=== PATIENT | male | born 1965 | race African-American/Black ===

== ENCOUNTER 2019-06-02 14:41 | Inpatient (IN) | payer OTHER ==
[2019-06-02 15:57] VITALS: BMI 38.3
--- NOTE | 2019-06-02 18:29 | HP ---
CIWA Score Nausea/Vomitin-No Nausea/No Vomiting Muscle Tremors: 3 Anxiety: 3 Agitation: 2 Paroxysmal Sweats: 4-Forehead w/Sweat Beads Orientation: 0-Oriented Tacttile Disturbances: 2-Mild Itch/Numbness/Burn Auditory Disturbances: 0-None Visual Disturbances: 0-None Headache: 2-Mild CIWA-Ar Total Score: 16 - Admission Criteria OASAS Guidelines: Admission for Medically Managed Detox: Requires at least one of the followin. CIWA greater than 12 2. Seizures within the past 24 hours 3. Delirium tremens within the past 24 hours 4. Hallucinations within the past 24 hours 5. Acute intervention needed for co occurring medical disorder 6. Acute intervention needed for co occurring psychiatric disorder 7. Severe withdrawal that cannot be handled at a lower level of care (continued vomiting, continued diarrhea, abnormal vital signs) requiring intravenous medication and/or fluids 8. Admitting History and Physical - Admission Chief Complaint: "i'm here for alcohol detox". History of Present Illness: A 53year old male with history of HTN, dyslipidemia, CKD, 2heart sx in november 2018 and back sx in july 2018 who is here today requesting for alcohol detox. Pt states, he was in a detox unit in the [place] for 5days for alcohol detox 1month ago but can't recall the name of the hospital. pt reports that several attempts to remain sober has failed. History Source: Patient Limitations to Obtaining History: No Limitations - Past Medical History Cardiovascular: Yes: HTN, Hyperlipdemia, Other (H/o 2heart sx, november 2018.) Pulmonary: Yes: Asthma Musculoskeletal: Yes: Chronic low back pain, Other (h/o back sx july 2018.) - Smoking History Smoking history: Current some day smoker Have you smoked in the past 12 months: Yes Aproximately how many cigarettes per day: 20 - Alcohol/Substance Use Hx Alcohol Use: Yes History of Substance Use: reports: None - Social History Usual Living Arrangement: Yes: Other (lives with his sister) Do you think of yourself as: Straight/Heterosexual ADL: Independent History of Recent Travel: No Admission ROS S - HPI Allergies/Adverse Reactions: Allergies Allergy/AdvReac Type Severity Reaction Status Date / Time No Known Allergies Allergy Verified 06/02/19 15:43 Exam Limitations: No Limitations - Ebola screening Have you traveled outside of the country in the last 21 days: No Have you had contact with anyone from an Ebola affected area: No Have you been sick,other than usual withdrawal symptoms: No Do you have a fever: No - Review of Systems Constitutional: Night Sweats EENT: reports: Blurred Vision Respiratory: reports: No Symptoms reported Cardiac: reports: No Symptoms Reported GI: reports: No Symptoms Reported : reports: No Symptoms Reported Musculoskeletal: reports: No Symptoms Reported, Back Pain Integumentary: reports: No Symptoms Reported, Sweating Neuro: reports: No Symptoms reported, Headache Endocrine: reports: No Symptoms Reported Hematology: reports: No Symptoms Reported Psychiatric: reports: No Sypmtoms Reported, Judgement Intact Other Systems: Reviewed and Negative Patient History - Patient Medical History Hx Anemia: No Hx Asthma: No Hx Chronic Obstructive Pulmonary Disease (COPD): No Hx Cancer: No Hx Cardiac Disorders: Yes Hx Congestive Heart Failure: No Hx Hypertension: Yes Hx Hypercholesterolemia: Yes Hx Pacemaker: No HX Cerebrovascular Accident: No Hx Seizures: No Hx Dementia: No Hx Diabetes: No Hx Gastrointestinal Disorders: No Hx Liver Disease: No Hx Genitourinary Disorders: No Hx Sexually Transmitted Disorders: No Hx Renal Disease (ESRD): No Hx Thyroid Disease: No Hx Human Immunodeficiency Virus (HIV): No Hx Hepatitis C: No Hx Depression: No Hx Suicide Attempt: No Hx Bipolar Disorder: No Hx Schizophrenia: No - Patient Surgical History Past Surgical History: Yes Hx Cardiac Surgery: Yes Anesthesia Reaction: No - PPD History Previous Implant?: No (can't recall) Implanted On Prior R Admission?: No PPD to be Administered?: Yes - Smoking Cessation Smoking history: Current some day smoker Have you smoked in the past 12 months: Yes Aproximately how many cigarettes per day: 20 Hx Chewing Tobacco Use: No Initiated information on smoking cessation: Yes 'Breaking Loose' booklet given: 06/02/19 - Substance & Tx. History Hx Alcohol Use: Yes Substance Use Type: None Hx Substance Use Treatment: No - Substances abused Alcohol Substance route: Oral Frequency: Daily Amount used: a case and half Age of first use: 13 Date of last use: 06/02/19 Admission Physical Exam BHS - Vital Signs Vital Signs: Vital Signs - 24 hr 06/02/19 06/02/19 15:40 17:44 Temperature 97.1 F L 97.1 F L Pulse Rate 89 89 Respiratory 17 17 Rate Blood Pressure 114/74 114/74 - Diagnostic (1) Alcohol use disorder Status: Deleted (2) Hypertension Status: Chronic Qualifiers: Hypertension type: essential hypertension Qualified Code(s): I10 - Essential (primary) hypertension (3) CKD (chronic kidney disease) Status: Chronic Cleared for Admission BHS - Detox or Rehab [facility] Level of Care: Medically Managed Detox Regimen/Protocol: Librium Breathalyzer - Breathalyzer Breathalyzer: 0.184 Urine Drug Screen - Test Device Lot number: [id number] Expiration date: 12/23/20 - Control Is test valid?: Yes - Results Drug screen NEGATIVE: Yes Inpatient Rehab Admission - Rehab Decision to Admit Inpatient rehab admission?: No
[2019-06-02] MEDS ORDERED: NICOTINE POLACRILEX 2 MG GUM BUC PRN (18:44)
[2019-06-02] MEDS ORDERED: hydrOXYzine PAMOATE 25 MG CAPSULE (FP) PO PRN (18:44)
[2019-06-02] MEDS ORDERED: MAGNESIUM HYDROX 2400MG/30ML ORAL SUSPENSION 30 ML CUP PO PRN (18:44)
[2019-06-02] MEDS ORDERED: MAG HYDROX/AL HYDROX/SIMETH 30 ML UNIT-DOSE CUP PO PRN (18:44)
[2019-06-02] MEDS ORDERED: ACETAMINOPHEN 325 MG TABLET (FP) PO PRN ×2 (18:44)
[2019-06-02] MEDS ORDERED: METHOCARBAMOL 500 MG TABLET PO PRN (18:44)
[2019-06-02] MEDS ORDERED: BISMUTH SUBSALICYLATE 524 MG/30 ML UD PO PRN (18:44)
[2019-06-02] MEDS ORDERED: MAGNESIUM CITRATE 300 ML BOTTLE PO PRN (18:44)
[2019-06-02] MEDS ORDERED: MENTHOL/PHENOL 1 EACH UD MM PRN (18:44)
[2019-06-02] MEDS ORDERED: chlordiazePOXIDE HCL 25 MG CAPSULE PO ONE (18:46)
[2019-06-02] MEDS ORDERED: chlordiazePOXIDE HCL 10 MG CAPSULE PO PRN (18:46)
[2019-06-02] MEDS: IBUPROFEN 400 MG TABLET (FP) PO PRN (19:50)
[2019-06-02] MEDS: METOPROLOL TARTRATE 50 MG TABLET (FP) PO SCH (22:20)
[2019-06-02] MEDS: chlordiazePOXIDE HCL 25 MG CAPSULE PO SCH (22:20)
[2019-06-02] MEDS: THIAMINE HCL 100 MG TABLET (FP) PO SCH (22:20)
[2019-06-02] MEDS: amLODIPine BESYLATE 10 MG TABLET (FP) PO SCH (22:20)
[2019-06-02] MEDS: ATORVASTATIN CA 80 MG TABLET (FP) PO SCH (22:20)
[2019-06-03] MEDS: chlordiazePOXIDE HCL 25 MG CAPSULE PO SCH ×3 (05:17→21:42)
[2019-06-03] MEDS: IBUPROFEN 400 MG TABLET (FP) PO PRN ×2 (05:17→21:45)
[2019-06-03 09:45] LABS: HEMOGLOBIN 14.3 GM/dL (11.7-16.9); MCH 29.2 pg (25.7-33.7); MCHC 32.6 g/dl (32.0-35.9); MEAN CELL VOLUME 89.7 fl (80-96); MEAN PLT VOLUME 9.1 fl (7.5-11.1); PLATELET COUNT 280 K/MM3 (134-434); RDW 14.8 % (11.9-15.9); WHITE BLOOD COUNT 5.4 K/mm3 (4.0-10.0)
--- NOTE | 2019-06-03 10:04 | PN ---
[facility] CIWA - CIWA Score Nausea/Vomitin-Mild Nausea/No Vomiting Muscle Tremors: 2 Anxiety: 2 Agitation: 2 Paroxysmal Sweats: No Perspiration Orientation: 0-Oriented Tacttile Disturbances: 1-Very Mild Itch/Numbness Auditory Disturbances: 0-None Visual Disturbances: 0-None Headache: 2-Mild CIWA-Ar Total Score: 10 S Progress Note (SOAP) Subjective: alert,irritable,anxious,interrupted sleep,pain in the body,no chest pain,no sob Objective: 06/03/19 10:03 Vital Signs Temperature 97.9 F 06/03/19 09:10 Pulse Rate 88 06/03/19 09:10 Respiratory Rate 18 06/03/19 09:10 Blood Pressure 143/96 06/03/19 09:10 O2 Sat by Pulse Oximetry (%) 06/03/19 10:03 Laboratory Last Values WBC 5.4 K/mm3 (4.0-10.0) 06/03/19 08:00 RBC 4.90 M/mm3 (4.00-5.60) 06/03/19 08:00 Hgb 14.3 GM/dL (11.7-16.9) 06/03/19 08:00 Hct 44.0 % (35.4-49) 06/03/19 08:00 MCV 89.7 fl (80-96) 06/03/19 08:00 MCH 29.2 pg (25.7-33.7) 06/03/19 08:00 MCHC 32.6 g/dl (32.0-35.9) 06/03/19 08:00 RDW 14.8 % (11.9-15.9) 06/03/19 08:00 Plt Count 280 K/MM3 (134-434) 06/03/19 08:00 MPV 9.1 fl (7.5-11.1) 06/03/19 08:00 labs pending Assessment: 06/03/19 10:04 withdrawal symptom Plan: continue detox jonahium margoan
[2019-06-03] MEDS: METOPROLOL TARTRATE 50 MG TABLET (FP) PO SCH ×2 (10:13→21:42)
[2019-06-03] MEDS: CLOPIDOGREL BISULFATE 75 MG TABLET (FP) PO SCH (10:13)
[2019-06-03] MEDS: PANTOPRAZOLE 20 MG TABLET (FP) PO SCH (10:13)
[2019-06-03] MEDS: PRENATAL VITAMINS W/ FOLIC ACID TABLET (FP) PO SCH (10:13)
[2019-06-03] MEDS: amLODIPine BESYLATE 10 MG TABLET (FP) PO SCH ×2 (10:13→21:42)
[2019-06-03] MEDS: ASPIRIN COATED 81 MG TABLET.EC PO SCH (10:14)
[2019-06-03] MEDS: NICOTINE 21 MG/24 HOURS TOPICAL PATCH TD SCH (10:15)
[2019-06-03] MEDS: FUROSEMIDE 40 MG TABLET (FP) PO SCH (10:16)
[2019-06-03 10:18] LABS: ALBUMIN 3.5 g/dl (3.4-5.0); BILIRUBIN,TOTAL 1.1 mg/dL (0.2-1); BLOOD UREA NITROGEN 10.5 mg/dL (7-18); CREATININE 1.1 mg/dL (0.55-1.3); POTASSIUM 4.1 mmol/L (3.5-5.1); TOT PROT 6.9 g/dl (6.4-8.2)
[2019-06-03] MEDS: ATORVASTATIN CA 80 MG TABLET (FP) PO SCH (21:42)
[2019-06-03] MEDS: MELATONIN 5 MG TABLETS PO PRN (21:43)
[2019-06-03] MEDS: THIAMINE HCL 100 MG TABLET (FP) PO SCH (21:43)
[2019-06-04] MEDS: chlordiazePOXIDE 5 MG CAPSULE PO SCH ×3 (05:16→22:13)
--- NOTE | 2019-06-04 10:03 | PN ---
[facility] CIWA - CIWA Score Nausea/Vomitin-No Nausea/No Vomiting Muscle Tremors: 2 Anxiety: 2 Agitation: 0-Normal Activity Paroxysmal Sweats: 2 Orientation: 0-Oriented Tacttile Disturbances: 2-Mild Itch/Numbness/Burn Auditory Disturbances: 0-None Visual Disturbances: 0-None Headache: 1-Very Mild CIWA-Ar Total Score: 9 S Progress Note (SOAP) Subjective: c/o of body aches, chills, sweats , back pain Objective: 06/04/19 10:03 Vital Signs Temperature 97.9 F 06/04/19 09:15 Pulse Rate 89 06/04/19 09:15 Respiratory Rate 19 06/04/19 09:15 Blood Pressure 136/60 06/04/19 09:15 O2 Sat by Pulse Oximetry (%) Laboratory Last Values WBC 5.4 K/mm3 (4.0-10.0) 06/03/19 08:00 RBC 4.90 M/mm3 (4.00-5.60) 06/03/19 08:00 Hgb 14.3 GM/dL (11.7-16.9) 06/03/19 08:00 Hct 44.0 % (35.4-49) 06/03/19 08:00 MCV 89.7 fl (80-96) 06/03/19 08:00 MCH 29.2 pg (25.7-33.7) 06/03/19 08:00 MCHC 32.6 g/dl (32.0-35.9) 06/03/19 08:00 RDW 14.8 % (11.9-15.9) 06/03/19 08:00 Plt Count 280 K/MM3 (134-434) 06/03/19 08:00 MPV 9.1 fl (7.5-11.1) 06/03/19 08:00 Sodium 141 mmol/L (136-145) 06/03/19 08:00 Potassium 4.1 mmol/L (3.5-5.1) 06/03/19 08:00 Chloride 106 mmol/L (98-107) 06/03/19 08:00 Carbon Dioxide 27 mmol/L (21-32) 06/03/19 08:00 Anion Gap 7 MMOL/L (8-16) L 06/03/19 08:00 BUN 10.5 mg/dL (7-18) 06/03/19 08:00 Creatinine 1.1 mg/dL (0.55-1.3) 06/03/19 08:00 Est GFR (CKD-EPI)AfAm 89.61 06/03/19 08:00 Est GFR (CKD-EPI)NonAf 77.32 06/03/19 08:00 Random Glucose 96 mg/dL (74-106) 06/03/19 08:00 Calcium 9.0 mg/dL (8.5-10.1) 06/03/19 08:00 Total Bilirubin 1.1 mg/dL (0.2-1) H 06/03/19 08:00 AST 33 U/L (15-37) 06/03/19 08:00 ALT 25 U/L (13-61) 06/03/19 08:00 Alkaline Phosphatase 94 U/L (45-117) 06/03/19 08:00 Total Protein 6.9 g/dl (6.4-8.2) 06/03/19 08:00 Albumin 3.5 g/dl (3.4-5.0) 06/03/19 08:00 RPR Titer Nonreactive (NONREACTIVE) 06/03/19 08:00 Assessment: 06/04/19 10:03 Aox3 no acute distress EENT WNL Full ROM ambulating in the unit withdrawal sx Plan: increase fluids continue detox continue to monitor
[2019-06-04] MEDS: PRENATAL VITAMINS W/ FOLIC ACID TABLET (FP) PO SCH (10:12)
[2019-06-04] MEDS: amLODIPine BESYLATE 10 MG TABLET (FP) PO SCH ×2 (10:12→22:14)
[2019-06-04] MEDS: FUROSEMIDE 40 MG TABLET (FP) PO SCH (10:12)
[2019-06-04] MEDS: ASPIRIN COATED 81 MG TABLET.EC PO SCH (10:12)
[2019-06-04] MEDS: CLOPIDOGREL BISULFATE 75 MG TABLET (FP) PO SCH (10:12)
[2019-06-04] MEDS: METOPROLOL TARTRATE 50 MG TABLET (FP) PO SCH ×2 (10:12→22:14)
[2019-06-04] MEDS: PANTOPRAZOLE 20 MG TABLET (FP) PO SCH (10:13)
[2019-06-04] MEDS: NICOTINE 21 MG/24 HOURS TOPICAL PATCH TD SCH (10:13)
--- NOTE | 2019-06-04 14:09 | PN ---
S Progress Note Note: Vital Signs Temperature 98.4 F 06/04/19 13:41 Pulse Rate 78 06/04/19 13:41 Respiratory Rate 18 06/04/19 13:41 Blood Pressure 121/87 06/04/19 13:41 O2 Sat by Pulse Oximetry (%) Patient stable Labs normal If continues stable d/c in AM to [facility] for rehab
[2019-06-04] MEDS: ATORVASTATIN CA 80 MG TABLET (FP) PO SCH (22:14)
[2019-06-04] MEDS: THIAMINE HCL 100 MG TABLET (FP) PO SCH (22:14)
[2019-06-04] MEDS: MELATONIN 5 MG TABLETS PO PRN (22:15)
[2019-06-04] MEDS: IBUPROFEN 400 MG TABLET (FP) PO PRN (22:19)
[2019-06-05] MEDS ORDERED: chlordiazePOXIDE HCL 10 MG CAPSULE PO SCH (05:00)
--- NOTE | 2019-06-05 08:46 | DS ---
[facility] Detox Discharge Summary Admission Date: 06/02/19 Discharge Date: 06/05/19 - History Present History: Alcohol Dependence - Physical Exam Results Vital Signs: Vital Signs Temperature 98.1 F 06/05/19 06:54 Pulse Rate 84 06/05/19 06:54 Respiratory Rate 18 06/05/19 06:54 Blood Pressure 145/86 06/05/19 06:54 O2 Sat by Pulse Oximetry (%) Pertinent Admission Physical Exam Findings: Vital Signs Temperature 98.1 F 06/05/19 06:54 Pulse Rate 84 06/05/19 06:54 Respiratory Rate 18 06/05/19 06:54 Blood Pressure 145/86 06/05/19 06:54 O2 Sat by Pulse Oximetry (%) Laboratory Tests 06/03/19 06/03/19 06/03/19 08:00 08:00 08:00 WBC 5.4 RBC 4.90 Hgb 14.3 Hct 44.0 MCV 89.7 MCH 29.2 MCHC 32.6 RDW 14.8 Plt Count 280 MPV 9.1 Sodium 141 Potassium 4.1 Chloride 106 Carbon Dioxide 27 Anion Gap 7 L BUN 10.5 Creatinine 1.1 Est GFR (CKD-EPI)AfAm 89.61 Est GFR (CKD-EPI)NonAf 77.32 Random Glucose 96 Calcium 9.0 Total Bilirubin 1.1 H AST 33 ALT 25 Alkaline Phosphatase 94 Total Protein 6.9 Albumin 3.5 RPR Titer Nonreactive aaox3 ambulating no acute distress - Treatment Hospital Course: Detox Protocol Followed, Detoxed Safely, Responded well, Discharged Condition Good, Rehab Referral Accepted Patient has Accepted a Rehab Referral to: [facility] rehab - Medication Discharge Medications: Ambulatory Orders Acetaminophen 2 tab PO QID PRN 06/02/19 Amlodipine Besylate 10 mg PO BID 06/02/19 Aspirin [Aspirin EC] 81 mg PO DAILY 06/02/19 Atorvastatin Ca [Lipitor] 80 mg PO HS 06/02/19 Clopidogrel Bisulfate [Plavix] 75 mg PO DAILY 06/02/19 Furosemide [Lasix -] 40 mg PO DAILY 06/02/19 Metoprolol Tartrate [Lopressor -] 50 mg PO BID 06/02/19 Pantoprazole Sodium [Protonix -] 20 mg PO DAILY 06/02/19 - Diagnosis (1) CKD (chronic kidney disease) Current Visit: Yes Status: Chronic (2) Hypertension Current Visit: Yes Status: Chronic Qualifiers: Hypertension type: essential hypertension Qualified Code(s): I10 - Essential (primary) hypertension (3) Alcohol dependence with withdrawal, uncomplicated Current Visit: Yes Status: Chronic - AMA Did Patient Leave Against Medical Advice: No
[2019-06-05 09:52] VITALS: BP 130/95; PULSE 92; TEMP 97.7
[2019-06-05] MEDS: NICOTINE 21 MG/24 HOURS TOPICAL PATCH TD SCH (10:39)
[2019-06-05] MEDS: PANTOPRAZOLE 20 MG TABLET (FP) PO SCH (10:40)
[2019-06-05] MEDS: PRENATAL VITAMINS W/ FOLIC ACID TABLET (FP) PO SCH (10:40)
[2019-06-05] MEDS: ASPIRIN COATED 81 MG TABLET.EC PO SCH (10:40)
[2019-06-05] MEDS: FUROSEMIDE 40 MG TABLET (FP) PO SCH (10:40)
[2019-06-05] MEDS: amLODIPine BESYLATE 10 MG TABLET (FP) PO SCH (10:40)
[2019-06-05] MEDS: METOPROLOL TARTRATE 50 MG TABLET (FP) PO SCH (10:40)
[2019-06-05] MEDS: CLOPIDOGREL BISULFATE 75 MG TABLET (FP) PO SCH (10:40)
[2019-06-06] MEDS ORDERED: chlordiazePOXIDE HCL 10 MG CAPSULE PO ONE (05:00)
== END 2019-06-05 11:30 | disposition home or self-care (01) | DRG 775 ==
LOC: YASAS 14:41 → Y6N 18:54
PROVIDERS: ADMIT Allergy & Immunology; ATTEND Allergy & Immunology
PROC: HZ2ZZZZ Detoxification Services for Substance Abuse Treatment (ICD-10-PCS; principal; 2019-06-02)
DX: F10.230 Alcohol dependence with withdrawal, uncomplicated (principal); F17.210 Nicotine dependence, cigarettes, uncomplicated; I51.9 Heart disease, unspecified; I12.9 Hypertensive chronic kidney disease with stage 1 through stage 4 chronic kidney disease, or unspecified chronic kidney disease; N18.9 Chronic kidney disease, unspecified; E78.5 Hyperlipidemia, unspecified; J45.909 Unspecified asthma, uncomplicated; M54.5 Low back pain; G89.29 Other chronic pain
CPT/HCPCS: 36415; 80053; 85027; 86593

== ENCOUNTER 2019-07-30 11:14 | Inpatient (IN) | payer OTHER ==
[2019-07-30 13:21] VITALS: BMI 39.0
--- NOTE | 2019-07-30 13:50 | HP ---
CIWA Score Nausea/Vomitin-No Nausea/No Vomiting Muscle Tremors: 1-None Visible, but [place] Anxiety: 2 Agitation: 0-Normal Activity Paroxysmal Sweats: 1-Minimal Palms Moist Orientation: 3-Disoriented Date>2 days Tacttile Disturbances: 1-Very Mild Itch/Numbness Auditory Disturbances: 1-Very Mild Visual Disturbances: 1-Very Mild Sensitivity Headache: 2-Mild CIWA-Ar Total Score: 12 - Admission Criteria OASAS Guidelines: Admission for Medically Managed Detox: Requires at least one of the followin. CIWA greater than 12 2. Seizures within the past 24 hours 3. Delirium tremens within the past 24 hours 4. Hallucinations within the past 24 hours 5. Acute intervention needed for co occurring medical disorder 6. Acute intervention needed for co occurring psychiatric disorder 7. Severe withdrawal that cannot be handled at a lower level of care (continued vomiting, continued diarrhea, abnormal vital signs) requiring intravenous medication and/or fluids 8. Admitting History and Physical - Admission History of Present Illness: This is a 53 year old male with PMH of HTN, HLD, CAD (s/p 2x CABG 2018), asthma, chronic back pain. He presented to the clinic today seeking detoxification from alcohol. He was last admitted her in May 2019 for detox from alcohol. He drinks 1 12xpack of beer and 1-2 cans of wine daily. Has been drinking since he was 13, his last drink was earlier today when he had 3 beers. He denies seizures or blackouts related to drinking. He smokes 1/2 ppd of cigarettes. Denies heroin, cocaine, marijuana use ROS: - SOB, cough (dry) - Headache, dizziness PMH: - HTN, HLD, CAD (s/p 2x CABG 2018), asthma, chronic back pain PSH: - CAD (s/p 2x CABG 2018) - Back surgery (2019) Social: - Lives in a fpc, lives on disability - Previously had a [employer] - Support system, close to sister who lives in [place] Physical Exam: - CIWA 13 - AOx3 - Lungs: Clear B/L - CVS: RRR - Abdomen: Soft, ND, NT - LE: No edema, no calf tenderness - [employer]: Motor 5/5 B/L, sensations intact Plan: - CIWA 12, will admit for alcohol detox and start on Librium protocol - Psych consulted for Hx of depression/bipolar disorde - Past Medical History Cardiovascular: Yes: HTN, Hyperlipdemia, Other (H/o 2heart sx, november 2018.) Pulmonary: Yes: Asthma Musculoskeletal: Yes: Chronic low back pain, Other (h/o back sx july 2018.) - Smoking History Smoking history: Current some day smoker Have you smoked in the past 12 months: Yes Aproximately how many cigarettes per day: 20 - Alcohol/Substance Use Hx Alcohol Use: Yes History of Substance Use: reports: None - Social History ADL: Independent History of Recent Travel: No Admission [facility] Allergies/Adverse Reactions: Allergies Allergy/AdvReac Type Severity Reaction Status Date / Time No Known Allergies Allergy Verified 07/30/19 13:08 Patient History - Patient Medical History Hx Anemia: No Hx Asthma: Yes Hx Chronic Obstructive Pulmonary Disease (COPD): No Hx Cancer: No Hx Cardiac Disorders: No Hx Congestive Heart Failure: No Hx Hypertension: Yes Hx Hypercholesterolemia: Yes Hx Pacemaker: No HX Cerebrovascular Accident: No Hx Seizures: No Hx Dementia: No Hx Diabetes: No Hx Gastrointestinal Disorders: No Hx Liver Disease: No Hx Genitourinary Disorders: No Hx Sexually Transmitted Disorders: No Hx Renal Disease (ESRD): No Hx Thyroid Disease: No Hx Human Immunodeficiency Virus (HIV): No Hx Hepatitis C: No Hx Depression: Yes Hx Suicide Attempt: No Hx Bipolar Disorder: No Hx Schizophrenia: No - Patient Surgical History Past Surgical History: Yes Hx Neurologic Surgery: No Hx Cataract Extraction: No Hx Cardiac Surgery: Yes (cabb x2) Hx Lung Surgery: No Hx Breast Surgery: No Hx Breast Biopsy: No Hx Abdominal Surgery: No Hx Appendectomy: No Hx Cholecystectomy: No Hx Genitourinary Surgery: No Hx Section: No Hx Orthopedic Surgery: Yes (back sx.) Anesthesia Reaction: No - PPD History Previous Implant?: Yes Implanted On Prior [facility] Admission?: Yes Date: 06/06/19 Results: unobtainable - Smoking Cessation Smoking history: Current some day smoker Have you smoked in the past 12 months: Yes Aproximately how many cigarettes per day: 20 Cigars Per Day: 0 Hx Chewing Tobacco Use: No Initiated information on smoking cessation: No - Substances abused Alcohol Substance route: Oral Frequency: Daily Amount used: 12cans of beers Age of first use: 13 Date of last use: 07/30/19 Admission Physical Exam BHS - Vital Signs Vital Signs: Vital Signs - 24 hr 07/30/19 13:14 Temperature 97.1 F L Pulse Rate 97 H Respiratory 18 Rate Blood Pressure 128/86 Breathalyzer - Breathalyzer Breathalyzer: 0.196 Urine Drug Screen - Test Device Lot number: [id number] Expiration date: 04/25/21 - Control Is test valid?: Yes - Results Drug screen NEGATIVE: Yes
[2019-07-30] MEDS ORDERED: ACETAMINOPHEN 325 MG TABLET (FP) PO PRN ×2 (13:57→14:00)
[2019-07-30] MEDS ORDERED: chlordiazePOXIDE HCL 25 MG CAPSULE PO PRN (13:57)
[2019-07-30] MEDS ORDERED: MAGNESIUM CITRATE 300 ML BOTTLE PO PRN (13:57)
[2019-07-30] MEDS ORDERED: MENTHOL/PHENOL 1 EACH UD MM PRN (13:57)
[2019-07-30] MEDS ORDERED: NICOTINE POLACRILEX 2 MG GUM BUC PRN (13:57)
[2019-07-30] MEDS ORDERED: MAG HYDROX/AL HYDROX/SIMETH 30 ML UNIT-DOSE CUP PO PRN (13:57)
[2019-07-30] MEDS ORDERED: MAGNESIUM HYDROX 2400MG/30ML ORAL SUSPENSION 30 ML CUP PO PRN (13:57)
--- NOTE | 2019-07-30 13:59 | BHS.RME ---
Substance Use & Tx History - Substance Use History Alcohol Substance amount: 12 beers Frequency of use: Daily Substance route: Oral Date of Last Use: 07/30/19 Nicotine Substance amount: 20 ciggs Frequency of use: Daily Substance route: Smoking Date of Last Use: 07/30/19 Physical/Psych/Mental Status - Behavior General Behavior: Increased activity (restlessness, agitation) Eye Contact: Normal - Cooperativeness Cooperativeness: Cooperative - Thinking Thought Processes: Tight, Logical, Goal Directed Thought content: Future oriented - Physical Health Problems Is patient presently having any pain?: No Does patient presently have any injuries (include location): No Does patient currently have a fever: No Is patient : No CIWA Nausea/Vomitin-No Nausea/No Vomiting Muscle Tremors: 1-None Visible, but [place] Anxiety: 2 Agitation: 0-Normal Activity Paroxysmal Sweats: 1-Minimal Palms Moist Orientation: 3-Disoriented Date>2 days Tacttile Disturbances: 1-Very Mild Itch/Numbness Auditory Disturbances: 1-Very Mild Visual Disturbances: 1-Very Mild Sensitivity Headache: 2-Mild CIWA-Ar Total Score: 12
[2019-07-30] MEDS ORDERED: ONDANSETRON *ODT* 4 MG TABLET SL ONE (14:34)
[2019-07-30] MEDS ORDERED: BISMUTH SUBSALICYLATE 262 MG/15 ML BTL PO PRN (14:41)
[2019-07-30] MEDS: hydrOXYzine PAMOATE 25 MG CAPSULE (FP) PO SCH ×3 (16:01→21:01)
[2019-07-30] MEDS: NICOTINE 14 MG/24 HOURS TOPICAL PATCH TD SCH (16:03)
[2019-07-30] MEDS: chlordiazePOXIDE HCL 25 MG CAPSULE PO SCH ×2 (18:00→22:34)
[2019-07-30 19:40] LABS: HEMATOCRIT 43.2 % (35.4-49); MCHC 32.5 g/dl (32.0-35.9); MEAN CELL VOLUME 89.2 fl (80-96); PLATELET COUNT 314 K/MM3 (134-434); RBC 4.84 M/mm3 (4.00-5.60); RDW 15.6 % (11.9-15.9); WHITE BLOOD COUNT 7.6 K/mm3 (4.0-10.0)
[2019-07-30 20:11] LABS: ALBUMIN 3.9 g/dl (3.4-5.0); BILIRUBIN,TOTAL 0.3 mg/dL (0.2-1); BLOOD UREA NITROGEN 11.8 mg/dL (7-18); CALCIUM 9.1 mg/dL (8.5-10.1); CREATININE 1.1 mg/dL (0.55-1.3); POTASSIUM 4.3 mmol/L (3.5-5.1); TOT PROT 7.4 g/dl (6.4-8.2)
[2019-07-30] MEDS: THIAMINE HCL 100 MG TABLET (FP) PO SCH (21:00)
[2019-07-30] MEDS: METOPROLOL TARTRATE 50 MG TABLET (FP) PO SCH (21:00)
[2019-07-30] MEDS: ATORVASTATIN CA 80 MG TABLET (FP) PO SCH (21:01)
[2019-07-30] MEDS ORDERED: MELATONIN 5 MG TABLETS PO SCH (22:00)
[2019-07-30] MEDS ORDERED: amLODIPine BESYLATE 10 MG TABLET (FP) PO SCH (22:00)
[2019-07-31] MEDS: chlordiazePOXIDE HCL 25 MG CAPSULE PO SCH ×4 (06:05→22:34)
[2019-07-31] MEDS: hydrOXYzine PAMOATE 25 MG CAPSULE (FP) PO SCH ×5 (06:05→22:34)
[2019-07-31] MEDS: METHOCARBAMOL 500 MG TABLET PO PRN ×3 (06:11→22:38)
[2019-07-31] MEDS: IBUPROFEN 400 MG TABLET (FP) PO PRN ×2 (06:11→13:17)
--- NOTE | 2019-07-31 09:52 | CONSULT ---
[facility] Psychiatric Consult - Data Date of interview: 07/31/19 Admission source: Assisted on [address] [place] [address] Identifying data: Mr Drake is a 53 years old Black male, unemployed(omar su) receiving SSD, homeless seeking detox treatment for alcohol Substance Abuse History: Reports history of alcohol use. Refer to addiction counselor's summary for further information Medical History: Significant for bronchial asthma, GERD, hypertension, dyslipidemia, coronary artery disease, chronic back pain, history of CABG x2 ans back surgery in 2019 Psychiatric History: Denies history of previous psychiatric treatment. However, reports that he was recently referred by his primary care physician to [facility] for treatment of depression. Reports his depression stemmed from of his brother in December 2018 and psycosocial issues including homelessness. 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 He said that his next appointment is on 08/13/19. At present, reports feeling depressed and sleeping poorly Physical/Sexual Abuse/Trauma History: Denies history of abuse as a child or DV relationship as an adult Mental Status Exam - Mental Status Exam Alert and Oriented to: Time, Place, Person Cognitive Function: Fair Patient Appearance: Well Groomed Mood: Depressed Affect: Appropriate Patient Behavior: Cooperative Speech Pattern: Clear Voice Loudness: Normal Thought Process: Intact, Goal Oriented Thought Disorder: Not Present Hallucinations: Denies Suicidal Ideation: Denies Homicidal Ideation: Denies Insight/Judgement: Poor Sleep: Poorly Appetite: Good Muscle strength/Tone: Normal Gait/Station: Normal Psychiatric Findings - Problem List ([place] 1, 2,3) (1) Alcohol-induced mood disorder Current Visit: Yes Status: Acute (2) Alcohol-induced sleep disorder Current Visit: Yes Status: Acute (3) Alcohol dependence with withdrawal, uncomplicated Current Visit: No Status: Acute (4) Nicotine dependence Current Visit: Yes Status: Chronic (5) Hypertension Current Visit: No Status: Chronic Qualifiers: Hypertension type: essential hypertension Qualified Code(s): I10 - Essential (primary) hypertension (6) Dyslipidemia Current Visit: Yes Status: Chronic (7) GERD (gastroesophageal reflux disease) Current Visit: Yes Status: Chronic (8) CAD (coronary artery disease) of artery bypass graft Current Visit: Yes Status: Chronic (9) Bronchial asthma Current Visit: Yes Status: Chronic (10) Chronic back pain Current Visit: Yes Status: Chronic - Initial Treatment Plan Initial Treatment Plan: 1) Start Melatonin 10 mg po HS prn for insomnia. 2) Continue inpatient detoxification
[2019-07-31] MEDS ORDERED: MELATONIN 5 MG TABLETS PO PRN (09:55)
[2019-07-31] MEDS ORDERED: amLODIPine BESYLATE 10 MG TABLET (FP) PO ONE (10:00)
[2019-07-31] MEDS ORDERED: CLOPIDOGREL BISULFATE 75 MG TABLET (FP) PO SCH (10:00)
[2019-07-31] MEDS ORDERED: MULTIVITAMINS (DAILY MVI) TABLET (FP) PO SCH (10:00)
[2019-07-31] MEDS: ASPIRIN COATED 81 MG TABLET.EC PO SCH (10:44)
[2019-07-31] MEDS: METOPROLOL TARTRATE 50 MG TABLET (FP) PO SCH ×2 (10:44→22:34)
[2019-07-31] MEDS: CLOPIDOGREL BISULFATE 75 MG TABLET (FP) PO SCH (10:44)
[2019-07-31] MEDS: amLODIPine BESYLATE 10 MG TABLET (FP) PO SCH (10:44)
[2019-07-31] MEDS: PRENATAL VITAMINS W/ FOLIC ACID TABLET (FP) PO SCH (10:45)
[2019-07-31] MEDS: NICOTINE 14 MG/24 HOURS TOPICAL PATCH TD SCH (10:45)
[2019-07-31] MEDS: FUROSEMIDE 40 MG TABLET (FP) PO SCH (10:45)
[2019-07-31] MEDS: FAMOTIDINE 20 MG TABLET PO SCH ×2 (10:45→22:34)
--- NOTE | 2019-07-31 11:36 | PN ---
S CIWA - CIWA Score Nausea/Vomitin Muscle Tremors: 2 Anxiety: 2 Agitation: 2 Paroxysmal Sweats: 1-Minimal Palms Moist Orientation: 0-Oriented Tacttile Disturbances: 1-Very Mild Itch/Numbness Auditory Disturbances: 0-None Visual Disturbances: 0-None Headache: 2-Mild CIWA-Ar Total Score: 12 S Progress Note (SOAP) Subjective: alert,irritabel,anxious,interrupted sleep,tremor,pain in the body Objective: 07/31/19 11:35 Vital Signs Temperature 98.8 F 07/31/19 10:05 Pulse Rate 100 H 07/31/19 10:05 Respiratory Rate 20 07/31/19 10:05 Blood Pressure 146/102 H 07/31/19 10:05 O2 Sat by Pulse Oximetry (%) Laboratory Last Values WBC 7.6 K/mm3 (4.0-10.0) 07/30/19 11:41 RBC 4.84 M/mm3 (4.00-5.60) 07/30/19 11:41 Hgb 14.0 GM/dL (11.7-16.9) 07/30/19 11:41 Hct 43.2 % (35.4-49) 07/30/19 11:41 MCV 89.2 fl (80-96) 07/30/19 11:41 MCH 29.0 pg (25.7-33.7) 07/30/19 11:41 MCHC 32.5 g/dl (32.0-35.9) 07/30/19 11:41 RDW 15.6 % (11.9-15.9) 07/30/19 11:41 Plt Count 314 K/MM3 (134-434) 07/30/19 11:41 MPV 9.0 fl (7.5-11.1) 07/30/19 11:41 Sodium 143 mmol/L (136-145) 07/30/19 11:41 Potassium 4.3 mmol/L (3.5-5.1) 07/30/19 11:41 Chloride 111 mmol/L (98-107) H 07/30/19 11:41 Carbon Dioxide 25 mmol/L (21-32) 07/30/19 11:41 Anion Gap 7 MMOL/L (8-16) L 07/30/19 11:41 BUN 11.8 mg/dL (7-18) 07/30/19 11:41 Creatinine 1.1 mg/dL (0.55-1.3) 07/30/19 11:41 Est GFR (CKD-EPI)AfAm 89.61 07/30/19 11:41 Est GFR (CKD-EPI)NonAf 77.32 07/30/19 11:41 Random Glucose 84 mg/dL (74-106) 07/30/19 11:41 Calcium 9.1 mg/dL (8.5-10.1) 07/30/19 11:41 Total Bilirubin 0.3 mg/dL (0.2-1) 07/30/19 11:41 AST 27 U/L (15-37) 07/30/19 11:41 ALT 29 U/L (13-61) 07/30/19 11:41 Alkaline Phosphatase 106 U/L (45-117) 07/30/19 11:41 Total Protein 7.4 g/dl (6.4-8.2) 07/30/19 11:41 Albumin 3.9 g/dl (3.4-5.0) 07/30/19 11:41 RPR Titer Nonreactive (NONREACTIVE) 07/30/19 11:41 Assessment: 07/31/19 11:35 withdrawal symptom Plan: continue detox librium regien
[2019-07-31] MEDS: THIAMINE HCL 100 MG TABLET (FP) PO SCH (22:34)
[2019-07-31] MEDS: ATORVASTATIN CA 80 MG TABLET (FP) PO SCH (22:34)
[2019-08-01] MEDS: hydrOXYzine PAMOATE 25 MG CAPSULE (FP) PO SCH ×5 (06:47→22:49)
[2019-08-01] MEDS: CLOPIDOGREL BISULFATE 75 MG TABLET (FP) PO SCH (06:47)
[2019-08-01] MEDS: chlordiazePOXIDE HCL 25 MG CAPSULE PO SCH ×4 (06:47→22:46)
[2019-08-01] MEDS: IBUPROFEN 400 MG TABLET (FP) PO PRN (06:49)
[2019-08-01] MEDS: NICOTINE 14 MG/24 HOURS TOPICAL PATCH TD SCH (10:10)
[2019-08-01] MEDS: PRENATAL VITAMINS W/ FOLIC ACID TABLET (FP) PO SCH (10:10)
[2019-08-01] MEDS: FUROSEMIDE 40 MG TABLET (FP) PO SCH (10:10)
[2019-08-01] MEDS: FAMOTIDINE 20 MG TABLET PO SCH ×2 (10:11→22:46)
[2019-08-01] MEDS: ASPIRIN COATED 81 MG TABLET.EC PO SCH (10:11)
[2019-08-01] MEDS: METOPROLOL TARTRATE 50 MG TABLET (FP) PO SCH ×2 (10:11→22:46)
[2019-08-01] MEDS: amLODIPine BESYLATE 10 MG TABLET (FP) PO SCH (10:11)
--- NOTE | 2019-08-01 12:05 | PN ---
S CIWA - CIWA Score Nausea/Vomitin-Mild Nausea/No Vomiting Muscle Tremors: 2 Anxiety: 2 Agitation: 2 Paroxysmal Sweats: No Perspiration Orientation: 0-Oriented Tacttile Disturbances: 1-Very Mild Itch/Numbness Auditory Disturbances: 0-None Visual Disturbances: 0-None Headache: 1-Very Mild CIWA-Ar Total Score: 9 S Progress Note (SOAP) Subjective: alert,irritable,anxious,interrupted sleep,tremor,nausea Objective: 08/01/19 12:04 Vital Signs Temperature 98.7 F 08/01/19 09:59 Pulse Rate 104 H 08/01/19 09:59 Respiratory Rate 18 08/01/19 09:59 Blood Pressure 137/68 08/01/19 09:59 O2 Sat by Pulse Oximetry (%) Laboratory Last Values WBC 7.6 K/mm3 (4.0-10.0) 07/30/19 11:41 RBC 4.84 M/mm3 (4.00-5.60) 07/30/19 11:41 Hgb 14.0 GM/dL (11.7-16.9) 07/30/19 11:41 Hct 43.2 % (35.4-49) 07/30/19 11:41 MCV 89.2 fl (80-96) 07/30/19 11:41 MCH 29.0 pg (25.7-33.7) 07/30/19 11:41 MCHC 32.5 g/dl (32.0-35.9) 07/30/19 11:41 RDW 15.6 % (11.9-15.9) 07/30/19 11:41 Plt Count 314 K/MM3 (134-434) 07/30/19 11:41 MPV 9.0 fl (7.5-11.1) 07/30/19 11:41 Sodium 143 mmol/L (136-145) 07/30/19 11:41 Potassium 4.3 mmol/L (3.5-5.1) 07/30/19 11:41 Chloride 111 mmol/L (98-107) H 07/30/19 11:41 Carbon Dioxide 25 mmol/L (21-32) 07/30/19 11:41 Anion Gap 7 MMOL/L (8-16) L 07/30/19 11:41 BUN 11.8 mg/dL (7-18) 07/30/19 11:41 Creatinine 1.1 mg/dL (0.55-1.3) 07/30/19 11:41 Est GFR (CKD-EPI)AfAm 89.61 07/30/19 11:41 Est GFR (CKD-EPI)NonAf 77.32 07/30/19 11:41 Random Glucose 84 mg/dL (74-106) 07/30/19 11:41 Calcium 9.1 mg/dL (8.5-10.1) 07/30/19 11:41 Total Bilirubin 0.3 mg/dL (0.2-1) 07/30/19 11:41 AST 27 U/L (15-37) 07/30/19 11:41 ALT 29 U/L (13-61) 07/30/19 11:41 Alkaline Phosphatase 106 U/L (45-117) 07/30/19 11:41 Total Protein 7.4 g/dl (6.4-8.2) 07/30/19 11:41 Albumin 3.9 g/dl (3.4-5.0) 07/30/19 11:41 RPR Titer Nonreactive (NONREACTIVE) 07/30/19 11:41 Assessment: 08/01/19 12:04 withdrawal symptom Plan: continue detox librium regimen
[2019-08-01] MEDS: METHOCARBAMOL 500 MG TABLET PO PRN ×2 (16:39→22:48)
[2019-08-01] MEDS: ATORVASTATIN CA 80 MG TABLET (FP) PO SCH (22:46)
[2019-08-01] MEDS: THIAMINE HCL 100 MG TABLET (FP) PO SCH (22:46)
[2019-08-01] MEDS: ACETAMINOPHEN 325 MG TABLET (FP) PO PRN (22:47)
[2019-08-02] MEDS ORDERED: chlordiazePOXIDE HCL 10 MG CAPSULE PO PRN
[2019-08-02] MEDS: CLOPIDOGREL BISULFATE 75 MG TABLET (FP) PO SCH (06:29)
[2019-08-02] MEDS: hydrOXYzine PAMOATE 25 MG CAPSULE (FP) PO SCH ×3 (06:29→14:12)
[2019-08-02] MEDS: chlordiazePOXIDE HCL 10 MG CAPSULE PO SCH ×4 (06:29→22:43)
[2019-08-02] MEDS: ACETAMINOPHEN 325 MG TABLET (FP) PO PRN (06:32)
[2019-08-02] MEDS: PRENATAL VITAMINS W/ FOLIC ACID TABLET (FP) PO SCH (10:48)
[2019-08-02] MEDS: FUROSEMIDE 40 MG TABLET (FP) PO SCH (10:48)
[2019-08-02] MEDS: FAMOTIDINE 20 MG TABLET PO SCH ×2 (10:49→22:43)
[2019-08-02] MEDS: NICOTINE 14 MG/24 HOURS TOPICAL PATCH TD SCH (10:49)
[2019-08-02] MEDS: METOPROLOL TARTRATE 50 MG TABLET (FP) PO SCH ×2 (10:49→22:43)
[2019-08-02] MEDS: amLODIPine BESYLATE 10 MG TABLET (FP) PO SCH (10:49)
[2019-08-02] MEDS: ASPIRIN COATED 81 MG TABLET.EC PO SCH (10:49)
[2019-08-02] MEDS: IBUPROFEN 400 MG TABLET (FP) PO PRN ×2 (10:52→17:47)
--- NOTE | 2019-08-02 11:58 | PN ---
[facility] CIWA - CIWA Score Nausea/Vomitin-No Nausea/No Vomiting Muscle Tremors: 2 Anxiety: 1-Mildly Anxious Agitation: 2 Paroxysmal Sweats: 2 Orientation: 0-Oriented Tacttile Disturbances: 0-None Auditory Disturbances: 0-None Visual Disturbances: 0-None Headache: 0-None Present CIWA-Ar Total Score: 7 BHS Progress Note (SOAP) Subjective: sweats restless interrupted sleep muscle ache back pain Objective: 08/02/19 11:58 Vital Signs Temperature 98.2 F 08/02/19 09:44 Pulse Rate 108 H 08/02/19 09:44 Respiratory Rate 20 08/02/19 09:44 Blood Pressure 127/97 08/02/19 09:44 O2 Sat by Pulse Oximetry (%) aaox3 ambulating no acute distress Assessment: 08/02/19 11:58 withdrawals Plan: continue detox motrin/tylenol prn roboxin prn lidocaine patch
[2019-08-02] MEDS ORDERED: hydrOXYzine PAMOATE 25 MG CAPSULE (FP) PO PRN (14:22)
[2019-08-02] MEDS: LIDOCAINE 5% TOPICAL PATCH TP SCH (15:21)
[2019-08-02] MEDS ORDERED: LIDOCAINE PATCH REMOVAL MC SCH (22:00)
[2019-08-02] MEDS: ATORVASTATIN CA 80 MG TABLET (FP) PO SCH (22:42)
[2019-08-02] MEDS: THIAMINE HCL 100 MG TABLET (FP) PO SCH (22:43)
[2019-08-02] MEDS: METHOCARBAMOL 500 MG TABLET PO PRN (22:44)
[2019-08-03] MEDS: CLOPIDOGREL BISULFATE 75 MG TABLET (FP) PO SCH (06:17)
[2019-08-03] MEDS: chlordiazePOXIDE HCL 10 MG CAPSULE PO SCH ×2 (06:18→17:58)
[2019-08-03] MEDS: IBUPROFEN 400 MG TABLET (FP) PO PRN ×2 (06:19→18:01)
[2019-08-03] MEDS: METHOCARBAMOL 500 MG TABLET PO PRN ×2 (06:20→18:01)
[2019-08-03] MEDS: NICOTINE 14 MG/24 HOURS TOPICAL PATCH TD SCH (10:14)
[2019-08-03] MEDS: FUROSEMIDE 40 MG TABLET (FP) PO SCH (10:14)
[2019-08-03] MEDS: PRENATAL VITAMINS W/ FOLIC ACID TABLET (FP) PO SCH (10:14)
[2019-08-03] MEDS: amLODIPine BESYLATE 10 MG TABLET (FP) PO SCH (10:14)
[2019-08-03] MEDS: LIDOCAINE 5% TOPICAL PATCH TP SCH (10:15)
[2019-08-03] MEDS: METOPROLOL TARTRATE 50 MG TABLET (FP) PO SCH (10:15)
[2019-08-03] MEDS: ASPIRIN COATED 81 MG TABLET.EC PO SCH (10:15)
[2019-08-03] MEDS: FAMOTIDINE 20 MG TABLET PO SCH (10:15)
[2019-08-03] MEDS: ACETAMINOPHEN 325 MG TABLET (FP) PO PRN (10:17)
--- NOTE | 2019-08-03 10:54 | PN ---
[facility] CIWA - CIWA Score Nausea/Vomitin-Mild Nausea/No Vomiting Muscle Tremors: 1-None Visible, but [place] Anxiety: 2 Agitation: 2 Paroxysmal Sweats: No Perspiration Orientation: 0-Oriented Tacttile Disturbances: 0-None Auditory Disturbances: 0-None Visual Disturbances: 0-None Headache: 1-Very Mild CIWA-Ar Total Score: 7 S Progress Note (SOAP) Subjective: alert,irritable,anxious,interrupted sleep, Objective: 08/03/19 10:52 Vital Signs Temperature 98.2 F 08/03/19 08:53 Pulse Rate 96 H 08/03/19 08:53 Respiratory Rate 18 08/03/19 08:53 Blood Pressure 155/92 08/03/19 08:53 O2 Sat by Pulse Oximetry (%) Assessment: 08/03/19 10:52 withdrawal symptom Plan: continue detox librium regimen,discharge in am
[2019-08-03 15:17] VITALS: BP 128/89; PULSE 91; TEMP 97.9
--- NOTE | 2019-08-03 15:23 | PN ---
S Progress Note Note: patient is stable to be discharge to rehab today
--- NOTE | 2019-08-03 15:31 | DS ---
[facility] Detox Discharge Summary Admission Date: 07/30/19 Discharge Date: 08/03/19 - History Present History: Alcohol Dependence Additional Comments: alert,oriented x 3 ambulation on unit heart normal heart sound,s1s2 lung clear bilaterally no abdominal pain stable for discharge to rehab total discharge time 35 mins Pertinent Past History: hypertension cad - Physical Exam Results Vital Signs: Vital Signs Temperature 97.9 F 08/03/19 13:23 Pulse Rate 91 H 08/03/19 13:23 Respiratory Rate 20 08/03/19 13:23 Blood Pressure 128/89 08/03/19 13:23 O2 Sat by Pulse Oximetry (%) Pertinent Admission Physical Exam Findings: Laboratory Last Values WBC 7.6 K/mm3 (4.0-10.0) 07/30/19 11:41 RBC 4.84 M/mm3 (4.00-5.60) 07/30/19 11:41 Hgb 14.0 GM/dL (11.7-16.9) 07/30/19 11:41 Hct 43.2 % (35.4-49) 07/30/19 11:41 MCV 89.2 fl (80-96) 07/30/19 11:41 MCH 29.0 pg (25.7-33.7) 07/30/19 11:41 MCHC 32.5 g/dl (32.0-35.9) 07/30/19 11:41 RDW 15.6 % (11.9-15.9) 07/30/19 11:41 Plt Count 314 K/MM3 (134-434) 07/30/19 11:41 MPV 9.0 fl (7.5-11.1) 07/30/19 11:41 Sodium 143 mmol/L (136-145) 07/30/19 11:41 Potassium 4.3 mmol/L (3.5-5.1) 07/30/19 11:41 Chloride 111 mmol/L (98-107) H 07/30/19 11:41 Carbon Dioxide 25 mmol/L (21-32) 07/30/19 11:41 Anion Gap 7 MMOL/L (8-16) L 07/30/19 11:41 BUN 11.8 mg/dL (7-18) 07/30/19 11:41 Creatinine 1.1 mg/dL (0.55-1.3) 07/30/19 11:41 Est GFR (CKD-EPI)AfAm 89.61 07/30/19 11:41 Est GFR (CKD-EPI)NonAf 77.32 07/30/19 11:41 Random Glucose 84 mg/dL (74-106) 07/30/19 11:41 Calcium 9.1 mg/dL (8.5-10.1) 07/30/19 11:41 Total Bilirubin 0.3 mg/dL (0.2-1) 07/30/19 11:41 AST 27 U/L (15-37) 07/30/19 11:41 ALT 29 U/L (13-61) 07/30/19 11:41 Alkaline Phosphatase 106 U/L (45-117) 07/30/19 11:41 Total Protein 7.4 g/dl (6.4-8.2) 07/30/19 11:41 Albumin 3.9 g/dl (3.4-5.0) 07/30/19 11:41 RPR Titer Nonreactive (NONREACTIVE) 07/30/19 11:41 Vital Signs Temperature 97.9 F 08/03/19 13:23 Pulse Rate 91 H 08/03/19 13:23 Respiratory Rate 20 08/03/19 13:23 Blood Pressure 128/89 08/03/19 13:23 O2 Sat by Pulse Oximetry (%) withdrawal signs and symptom - Treatment Hospital Course: Detox Protocol Followed, Detoxed Safely, Responded well, Discharged Condition Good, Rehab Referral Accepted Patient has Accepted [facility] Referral [facility] - Medication Discharge Medications: Ambulatory Orders Acetaminophen 2 tab PO QID PRN 06/02/19 Amlodipine Besylate 10 mg PO BID 06/02/19 Aspirin [Aspirin EC] 81 mg PO DAILY 06/02/19 Atorvastatin Ca [Lipitor] 80 mg PO HS 06/02/19 Clopidogrel Bisulfate [Plavix] 75 mg PO DAILY 06/02/19 Furosemide [Lasix -] 40 mg PO DAILY 06/02/19 Metoprolol Tartrate [Lopressor -] 50 mg PO BID 06/02/19 Pantoprazole Sodium [Protonix -] 20 mg PO DAILY 06/02/19 Multivitamin [Multiple Vitamins] 1 each PO DAILY 07/30/19 - Diagnosis (1) Bronchial asthma Current Visit: Yes Status: Chronic (2) CAD (coronary artery disease) of artery bypass graft Current Visit: Yes Status: Chronic (3) Chronic back pain Current Visit: Yes Status: Chronic (4) Dyslipidemia Current Visit: Yes Status: Chronic (5) GERD (gastroesophageal reflux disease) Current Visit: Yes Status: Chronic (6) Nicotine dependence Current Visit: Yes Status: Chronic (7) Hypertension Current Visit: No Status: Chronic Qualifiers: Hypertension type: essential hypertension Qualified Code(s): I10 - Essential (primary) hypertension (8) Alcohol dependence Current Visit: Yes Status: Acute - AMA Did Patient Leave Against Medical Advice: No
--- NOTE | 2019-08-03 15:37 | HP ---
[facility] Rehab Assess/Revision - Admission History Admitted to Rehab [facility]: [facility] Date of Admission to Rehab: 08/03/2019 - Vital signs Vital Signs: Vital Signs Period Temp Pulse Resp BP Sys/Arshad Pulse Ox Last 24 Hr 96.4 F-98.3 F 82-98 17-20 123-155/84-93 - Findings Detox History & Physical reviewed: Yes Concur with findings: Yes Comments/Additional Findings: for rehab as protocol Inpatient Rehab Admission - Rehab Decision to Admit Inpatient rehab admission?: Yes - Initial Determination Are CD services needed?: Yes Free of communicable disease: Yes Not in need of hospitalization: Yes - Rehab Admission Criteria Previous failed treatment: Yes Poor recovery environment: Yes Comorbidities: Yes Lacks judgement: No Patient is meeting Inpatient Rehab admission criteria:: Yes
[2019-08-04] MEDS ORDERED: chlordiazePOXIDE HCL 10 MG CAPSULE PO ONE (05:00)
== END 2019-08-03 18:06 | disposition other institution (70) | DRG 775 ==
LOC: YASAS 11:14 → Y6N 14:20
PROVIDERS: ADMIT Allergy & Immunology; ATTEND Allergy & Immunology
PROC: HZ2ZZZZ Detoxification Services for Substance Abuse Treatment (ICD-10-PCS; principal; 2019-07-30)
DX: F10.230 Alcohol dependence with withdrawal, uncomplicated (principal); F17.210 Nicotine dependence, cigarettes, uncomplicated; F10.282 Alcohol dependence with alcohol-induced sleep disorder; F10.24 Alcohol dependence with alcohol-induced mood disorder; I25.10 Atherosclerotic heart disease of native coronary artery without angina pectoris; I10 Essential (primary) hypertension; Z95.1 Presence of aortocoronary bypass graft; J45.909 Unspecified asthma, uncomplicated; E78.5 Hyperlipidemia, unspecified; K21.9 Gastro-esophageal reflux disease without esophagitis; M54.89 Other dorsalgia; G89.29 Other chronic pain; Z56.0 Unemployment, unspecified; Z59.0 Homelessness
CPT/HCPCS: 36415; 80053; 85027; 86593

== ENCOUNTER 2019-08-03 18:21 | Inpatient (IN) | payer OTHER ==
--- NOTE | 2019-08-03 20:29 | HP ---
[facility] Rehab Assess/Revision - Admission History Ad[facility] Date of Admission to Rehab: 08/03/2019 - Findings Detox History & Physical reviewed: Yes Concur with findings: Yes Comments/Additional Findings: 53 yo with PMH of HTN, HLD, CAD (s/p 2x CABG 2019), Asthma, Back Pain, Nicotine use disorder. Received alcohol detox and transferred to rehab for post-detox stabilization and support. Inpatient Rehab Admission - Rehab Decision to Admit Inpatient rehab admission?: Yes - Initial Determination Are CD services needed?: Yes Free of communicable disease: Yes Not in need of hospitalization: Yes - Rehab Admission Criteria Previous failed treatment: Yes Poor recovery environment: Yes Comorbidities: Yes Lacks judgement: No Patient is meeting Inpatient Rehab admission criteria:: Yes
[2019-08-03] MEDS ORDERED: ACETAMINOPHEN 325 MG TABLET (FP) PO PRN (20:31)
[2019-08-03] MEDS ORDERED: MAGNESIUM HYDROX 2400MG/30ML ORAL SUSPENSION 30 ML CUP PO PRN (20:31)
[2019-08-03] MEDS ORDERED: MENTHOL/PHENOL 1 EACH UD MM PRN (20:31)
[2019-08-03] MEDS ORDERED: hydrOXYzine PAMOATE 25 MG CAPSULE (FP) PO PRN (20:31)
[2019-08-03] MEDS ORDERED: LOPERAMIDE HCL 2 MG CAPSULE PO PRN (20:31)
[2019-08-03] MEDS ORDERED: MAGNESIUM CITRATE 300 ML BOTTLE PO PRN (20:31)
[2019-08-03] MEDS ORDERED: guaiFENesin 200 MG/10 ML 10 ML UNIT-DOSE CUPS PO PRN (20:31)
[2019-08-03] MEDS ORDERED: P-EPHED 60MG/TRIPROLIDI 2.5MG TABLET PO PRN (20:31)
[2019-08-03] MEDS ORDERED: MAG HYDROX/AL HYDROX/SIMETH 30 ML UNIT-DOSE CUP PO PRN (20:31)
[2019-08-03] MEDS ORDERED: NICOTINE POLACRILEX 2 MG GUM BUC PRN (20:31)
[2019-08-03] MEDS: amLODIPine BESYLATE 10 MG TABLET (FP) PO SCH (21:56)
[2019-08-03] MEDS: FAMOTIDINE 20 MG TABLET PO SCH (21:56)
[2019-08-03] MEDS: METOPROLOL TARTRATE 50 MG TABLET (FP) PO SCH (21:56)
[2019-08-03] MEDS: IBUPROFEN 400 MG TABLET (FP) PO PRN (21:57)
[2019-08-03] MEDS ORDERED: MELATONIN 5 MG TABLETS PO SCH (22:00)
[2019-08-03] MEDS ORDERED: THIAMINE HCL 100 MG TABLET (FP) PO SCH (22:00)
[2019-08-03] MEDS ORDERED: ATORVASTATIN CA 80 MG TABLET (FP) PO SCH (22:00)
[2019-08-04 08:03] VITALS: BP 122/82; PULSE 87; TEMP 97.1
[2019-08-04] MEDS: METOPROLOL TARTRATE 50 MG TABLET (FP) PO SCH (09:23)
[2019-08-04] MEDS: FAMOTIDINE 20 MG TABLET PO SCH (09:24)
[2019-08-04] MEDS: amLODIPine BESYLATE 10 MG TABLET (FP) PO SCH (09:24)
--- NOTE | 2019-08-04 09:24 | DS ---
[facility] Rehab Discharge Summary - [facility] Rehab Discharge Summary Admission Date: 08/03/19 Discharge Date: 08/04/19 - History Present History: Alcohol dependence Pertinent Past History: This is a 53 year old male with PMH of HTN, HLD, CAD (s/p 2x CABG 2018), asthma, chronic back pain. H He was last admitted her in May 2019 for detox from alcohol. He drinks 1 12xpack of beer and 1-2 cans of wine daily. Has been drinking since he was 13,. He denies seizures or blackouts related to drinking. He smokes 1/2 ppd of cigarettes. 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 medically stable,.) Hospital Course: Patient was admitted to rehab yesterday; is leaving AMA today. - Medication Discharge Medications: Ambulatory Orders Acetaminophen 2 tab PO QID PRN 06/02/19 Amlodipine Besylate 10 mg PO BID 06/02/19 Aspirin [Aspirin EC] 81 mg PO DAILY 06/02/19 Atorvastatin Ca [Lipitor] 80 mg PO HS 06/02/19 Clopidogrel Bisulfate [Plavix] 75 mg PO DAILY 06/02/19 Furosemide [Lasix -] 40 mg PO DAILY 06/02/19 Metoprolol Tartrate [Lopressor -] 50 mg PO BID 06/02/19 Multivitamin [Multiple Vitamins] 1 each PO DAILY 07/30/19 Famotidine [Pepcid -] 20 mg PO BID tablet 08/03/19 - Medication-Assisted Treatment (MAT) Medication-Assisted Treatment (MAT): No - Discharge Instructions Diet, activity, other medical instructions: Diet: as tolerated Activity: as tolerated Other medical instructions: as tolerated - AMA Did Patient Leave Against Medical Advice: Yes
[2019-08-04] MEDS: IBUPROFEN 400 MG TABLET (FP) PO PRN (09:25)
[2019-08-04] MEDS ORDERED: ASPIRIN COATED 81 MG TABLET.EC PO SCH (10:00)
[2019-08-04] MEDS ORDERED: FUROSEMIDE 40 MG TABLET (FP) PO SCH (10:00)
[2019-08-04] MEDS ORDERED: NICOTINE 14 MG/24 HOURS TOPICAL PATCH TD SCH (10:00)
[2019-08-04] MEDS ORDERED: CLOPIDOGREL BISULFATE 75 MG TABLET (FP) PO SCH (10:00)
[2019-08-04] MEDS ORDERED: PRENATAL VITAMINS W/ FOLIC ACID TABLET (FP) PO SCH (10:00)
== END 2019-08-04 09:57 | disposition left against medical advice (07) | DRG 770 ==
LOC: YASAS 18:21 → Y3W 18:23
PROVIDERS: ADMIT Allergy & Immunology; ATTEND Allergy & Immunology
PROC: HZ42ZZZ Group Counseling for Substance Abuse Treatment, Cognitive-Behavioral (ICD-10-PCS; principal; 2019-08-03)
DX: F10.20 Alcohol dependence, uncomplicated (principal); F17.210 Nicotine dependence, cigarettes, uncomplicated; I25.810 Atherosclerosis of coronary artery bypass graft(s) without angina pectoris; I10 Essential (primary) hypertension; Z95.1 Presence of aortocoronary bypass graft; E78.5 Hyperlipidemia, unspecified; J45.909 Unspecified asthma, uncomplicated; M54.89 Other dorsalgia; G89.29 Other chronic pain